=== PATIENT | female | born 1985 | race Caucasian/White ===

== ENCOUNTER 2019-03-09 15:03 | Emergency (ER) | payer SELFPAY ==
[2019-03-09 15:42] LABS: Urine Appearance Cloudy; Urine Bacteria 2+ (Absent); Urine Bilirubin Negative (Negative); Urine Blood 3+ (Negative); Urine Color Yellow; Urine Glucose Negative (Negative); Urine Ketones Negative (Negative); Urine Nitrite Negative (Negative); Urine Protein Negative (Negative); Urine Red Blood Cell 3+(>10/hpf) (Absent); Urine Specific Gravity 1.023 (1.010-1.030); Urine Squamous Epithelial Cell Present (Absent); Urine Urobilinogen Negative (Negative); Urine White Blood Cell 2+(11-20/hpf) (Absent)
[2019-03-09 16:09] LABS: ABS Basophils 0.1 10^3/ul (0-0.2); ABS Eosinophils 0.1 10^3/ul (0-0.6); ABS Lymphocytes 2.3 10^3/ul (1.0-4.8); ABS Monocytes 0.9 10^3/ul (0-0.8); ABS Neutrophils 11.8 10^3/ul (1.5-7.7); Eosinophil % 0.8 %; Hematocrit 41 % (35-47); Hemoglobin 13.4 g/dL (12.0-16.0); Lymphocyte % 15.3 %; Mean Corpuscular HGB Conc 33 g/dL (31-36); Mean Corpuscular Hemoglobin 27 pg (27-31); Mean Corpuscular Volume 82 fL (80-97); Mean Platelet Volume 8.9 fL (7.4-10.4); Platelet Count 258 10^3/uL (150-450); Red Blood Count 4.97 10^6 /uL (3.70-4.87); Red Cell Distribution Width 14 % (10-15); White Blood Count 15.2 10^3/uL (3.5-10.8)
[2019-03-09 16:29] LABS: Albumin 4.7 g/dL (3.2-5.2); Albumin/Globulin Ratio 1.5 (1-3); BUN/Creatinine Ratio 24.3 (8-20); Calcium 9.5 mg/dL (8.6-10.3); EGFR African American 115.9 (>60); EGFR Non-African American 95.8 (>60); Globulin 3.1 g/dL (2-4); Potassium 4.2 mmol/L (3.5-5.0); Total Bilirubin 0.4 mg/dL (0.2-1.0); Total Protein 7.8 g/dL (6.4-8.9)
[2019-03-09] MEDS ORDERED: Ondansetron INJ* 2 MG/ML VIAL IV ONE (17:42)
[2019-03-09] MEDS ORDERED: Ketorolac INJ* 30 MG/ML 1 ML VIAL IV PUSH ONE (17:42)
[2019-03-09] MEDS ORDERED: NS 0.9% 1000 ML** 1,000 ML IV ONE (17:42)
[2019-03-09] MEDS ORDERED: Ondansetron ODT TAB* 4 MG ONE (18:10)
[2019-03-09] MEDS ORDERED: Ondansetron ODT TAB* 4 MG PO ONE (18:13)
[2019-03-09] MEDS ORDERED: Sulfamethox/Trimethoprim DS 800/160* TAB PO ONE (19:34)
[2019-03-09] MEDS ORDERED: Tamsulosin CAP* 0.4 MG PO ONE (19:34)
--- NOTE | 2019-03-09 19:34 | ED ---
GI/ HPI - HPI Summary HPI Summary: 33-year-old female presents with flank pain for the past day. Has history kidney stones states it feels same. Denies any urinary symptoms. No fevers. Notes nausea but no vomiting. No abdominal pain. States she has not had a kidney stone since she was . She has no medical conditions. Hasn't taking anything for her symptoms. - History of Current Complaint Chief Complaint: EDFlankPain Time Seen by Provider: 03/09/19 17:30 Stated Complaint: BACK AND FLANK PAIN PER PT Pain Intensity: 7 - Allergy/Home Medications Allergies/Adverse Reactions: Allergies Allergy/AdvReac Type Severity Reaction Status Date / Time MS Clavulanic Acid Allergy Diarrhea Verified 03/09/19 17:44 [From Augmentin] MS Codeine [Codeine] Allergy Vomiting Verified 03/09/19 17:44 MS Hydrocodone [From Vicodin] Allergy Vomiting Verified 03/09/19 17:44 PMH/Surg Hx/FS Hx/Imm Hx Endocrine/Hematology History: Denies: Hx Anticoagulant Therapy Respiratory History: Reports: Hx Asthma History: Reports: Hx Kidney Stones - Surgical History Surgery Procedure, Year, and Place: TUBAL LIGATION - Immunization History Date of Tetanus Vaccine: unk Date of Influenza Vaccine: none Infectious Disease History: No Infectious Disease History: Denies: Traveled Outside the [place] in Last 30 Days - Family History Known Family History: Positive: Non-Contributory - Social History Alcohol Use: Occasionally Substance Use Type: Reports: None Smoking Status (MU): Never Smoked Tobacco Have You Smoked in the Last Year: No Review of Systems Negative: Fever Negative: Chest Pain Negative: Shortness Of Breath Positive: Nausea. Negative: Vomiting Positive: flank pain All Other Systems Reviewed And Are Negative: Yes Physical Exam Triage Information Reviewed: Yes Vital Signs On Initial Exam: Initial Vitals Temp Pulse Resp BP Pulse Ox 98.1 F 87 17 174/99 100 03/09/19 15:14 03/09/19 15:14 03/09/19 15:14 03/09/19 15:14 03/09/19 15:14 Vital Signs Reviewed: Yes Appearance: Positive: Well-Appearing Skin: Positive: Warm, Dry Head/Face: Positive: Normal Head/Face Inspection Eyes: Positive: Normal, Conjunctiva Clear ENT: Positive: Pharynx normal Respiratory/Lung Sounds: Positive: Clear to Auscultation, Breath Sounds Present Cardiovascular: Positive: Normal, RRR Abdomen Description: Positive: Soft, CVA Tenderness (L) Bowel Sounds: Positive: Present Musculoskeletal: Positive: Normal Neurological: Positive: Normal Psychiatric: Positive: Normal Diagnostics - Vital Signs Vital Signs Temp Pulse Resp BP Pulse Ox 03/09/19 15:14 98.1 F 87 17 174/99 100 - Laboratory Lab Results: Lab Results 03/09/19 03/09/19 03/09/19 Range/Units 15:20 15:55 15:55 WBC 15.2 H (3.5-10.8) 10^3/uL RBC 4.97 H (3.70-4.87) 10^6 /uL Hgb 13.4 (12.0-16.0) g/dL Hct 41 (35-47) % MCV 82 (80-97) fL MCH 27 (27-31) pg MCHC 33 (31-36) g/dL RDW 14 (10-15) % Plt Count 258 (150-450) 10^3/uL MPV 8.9 (7.4-10.4) fL Neut % (Auto) 77.5 % Lymph % (Auto) 15.3 % [place] % (Auto) 6.0 % Eos % (Auto) 0.8 % Baso % (Auto) 0.4 % Absolute Neuts (auto) 11.8 H (1.5-7.7) 10^3/ul Absolute Lymphs (auto) 2.3 (1.0-4.8) 10^3/ul Absolute Monos (auto) 0.9 H (0-0.8) 10^3/ul Absolute Eos (auto) 0.1 (0-0.6) 10^3/ul Absolute Basos (auto) 0.1 (0-0.2) 10^3/ul Absolute Nucleated RBC 0.0 10^3/ul Nucleated RBC % 0.0 Sodium 137 (135-145) mmol/L Potassium 4.2 (3.5-5.0) mmol/L Chloride 104 (101-111) mmol/L Carbon Dioxide 26 (22-32) mmol/L Anion Gap 7 (2-11) mmol/L BUN 17 (6-24) mg/dL Creatinine 0.70 (0.51-0.95) mg/dL Est GFR ( Amer) 115.9 (>60) Est GFR (Non-Af Amer) 95.8 (>60) BUN/Creatinine Ratio 24.3 H (8-20) Glucose 97 (70-100) mg/dL Calcium 9.5 (8.6-10.3) mg/dL Total Bilirubin 0.40 (0.2-1.0) mg/dL AST 17 (13-39) U/L ALT 24 (7-52) U/L Alkaline Phosphatase 74 (34-104) U/L Total Protein 7.8 (6.4-8.9) g/dL Albumin 4.7 (3.2-5.2) g/dL Globulin 3.1 (2-4) g/dL Albumin/Globulin Ratio 1.5 (1-3) Urine Color Yellow Urine Appearance Cloudy Urine pH 5.0 (5-9) Ur Specific [place] 1.023 (1.010-1.030) Urine Protein Negative (Negative) Urine Ketones Negative (Negative) Urine Blood 3+ A (Negative) Urine Nitrate Negative (Negative) Urine Bilirubin Negative (Negative) Urine Urobilinogen Negative (Negative) Ur Leukocyte Esterase 2+ A (Negative) Urine WBC (Auto) 2+(11-20/hpf) A (Absent) Urine RBC (Auto) 3+(>10/hpf) A (Absent) Ur Squamous Epith Cells Present A (Absent) Urine Bacteria 2+ A (Absent) Urine Glucose Negative (Negative) Result Diagrams: 03/09/19 15:55 03/09/19 15:55 Lab Statement: Any lab studies that have been ordered have been reviewed, and results considered in the medical decision making process. - CT abd CT Interpretation Completed By: Radiologist Summary of CT Findings: IMPRESSION: 1. There is cholelithiasis without pericholecystic inflammatory change. 2. There is a 6 mm calculus in the proximal left ureter mild left obstructive uropathy. There is additional nonobstructing left nephrolithiasis. GIGU Course/Dx - Course Course Of Treatment: 33-year-old female presents with flank pain for the past day. Has history kidney stones states it feels same. Denies any urinary symptoms. No fevers. Notes nausea but no vomiting. No abdominal pain. States she has not had a kidney stone since she was . She has no medical conditions. Hasn't taking anything for her symptoms. On exam tenderness left flank. White blood count 15. Urine shows potential UTI so we' ll treat Bactrim. CT shows 6 mm stone ureteral. will place patient on Flonase. Gave course of pain medication. We'll have follow-up with urology. Patient understands agrees with plan. - Diagnoses Differential Diagnoses - Female: Pyelonephritis, Urinary Tract Infection, Ureteral Calculi Provider Diagnoses: Ureteral stone, UTI (urinary tract infection) Discharge ED - Sign-Out/Discharge Documenting (check all that apply): Patient Departure Patient Received Moderate/Deep Sedation with Procedure: No - Discharge Plan Condition: Good Disposition: HOME Prescriptions: Ondansetron ODT TAB* [Zofran 4 MG Odt TAB*] 4 mg PO Q6H PRN #16 tab.odt PRN Reason: Nausea Sulfamethox/Trimethoprim DS* [Bactrim DS 800/160 TAB*] 1 tab PO BID #9 tab Tamsulosin CAP* [Flomax CAP*] 0.4 mg PO DAILY #6 cap traMADol TAB* [Ultram*] 50 mg PO Q6HR PRN #12 tab MDD 4 PRN Reason: Pain - Severe Patient Education Materials: Urinary Tract Infection in Women (ED), Ureteral Stones (ED) Referrals: Kin Bergman PA [Primary Care Provider] - Hemal Hernandez MD [Medical Doctor] - Additional Instructions: Take ibuprofen every 6 hours and tramadol as needed every 6-8 hours take bactrim twice a day for 5 days Take Zofran every 6 hours for nausea as needed Take Flomax daily starting tomorrow, first dose given in ED until stone expelled , make sure stand up slowly Follow up with urology, call office tomorrow for appointment Strain urine until collect stone Return to ED if unable to manage pain at home, develop fever, or any new or worsening symptoms - Billing Disposition and Condition Condition: GOOD Disposition: Home - Attestation Statements Provider Attestation: I was available for consult. This patient was seen by the [facility]. The patient was not presented to, seen by, or examined by me. Joseph Schneider MD
[2019-03-09 19:45] VITALS: BP 138/90
== END 2019-03-09 19:51 | disposition home or self-care (01) ==
LOC: ED 15:03
DX: N20.1 Calculus of ureter (principal); N39.0 Urinary tract infection, site not specified; K80.20 Calculus of gallbladder without cholecystitis without obstruction; J45.909 Unspecified asthma, uncomplicated; Z98.51 Tubal ligation status; Z88.1 Allergy status to other antibiotic agents; Z88.5 Allergy status to narcotic agent; Z79.899 Other long term (current) drug therapy
CPT/HCPCS: 36415; 74176; 80053; 81003; 81015; 85025; 87086; 96374; 96375; 99283; A9270-GY; J1885

== ENCOUNTER 2020-09-05 10:04 | Inpatient (IN) ==
[~2020-09-05 10:04] MED LIST: Buffered Lidocaine 1% SYRIN 1 ml INTRADERM ONE; Lactated Ringers 1000 ml BAG 1,000 ML IV SCH; Lidocaine 2% PF 5 ML VIAL ONE; Midazolam 2 mg/2 ml VIAL 1 mg/ml 2 ml VIAL (2 mg) ONE; Rocuronium 50 mg VIAL 10 mg/ml 5 ml VIAL (50 mg) ONE; fentaNYL 100 mcg/2 ml 50 MCG/ML VIAL ONE
[2020-09-05] MEDS ORDERED: ceFAZolin 1 GM ADVAN 1 GM ADDV.VIAL IVPB ONE (10:17)
[2020-09-05] MEDS ORDERED: Heparin 5000 UNITS/ML 1 mL VIAL ONE (10:17)
[2020-09-05] MEDS ORDERED: Methylene Blue 0.5 % 50 MG/10 ML AMP IV ONE (10:26)
[2020-09-05] MEDS ORDERED: Bupivacaine 0.25% EPI 200,000 30 ML SDV ONE (10:27)
[2020-09-05] MEDS ORDERED: HYDROmorphone 1 MG/1 ML SYRINGE ONE ×2 (11:25→15:40)
[2020-09-05] MEDS ORDERED: Dexamethasone IV 4 MG/ML VIAL 1 ml VIAL ONE (11:32)
[2020-09-05] MEDS ORDERED: Phenylephrine 40 mcg/mL 10mL (400mcg) SYRINGE ONE (11:34)
[2020-09-05] MEDS ORDERED: diPHENhydraMINE IV 50 MG/ML 1 ml VIAL (BENADRYL) IV PRN (11:46)
[2020-09-05] MEDS ORDERED: Naloxone 0.4 mg VIAL 0.4 mg/ml 1 ml VIAL IV PRN (11:46)
[2020-09-05] MEDS ORDERED: Acetaminophen IV 1 GM/100ML 100 ML ONE (11:47)
[2020-09-05] MEDS ORDERED: fentaNYL 100 mcg/2 ml 50 MCG/ML VIAL ONE ×2 (13:46→15:40)
[2020-09-05] MEDS ORDERED: diPHENhydraMINE IV 50 MG/ML 1 ml VIAL (BENADRYL) ONE ×2 (14:01→15:27)
[2020-09-05] MEDS ORDERED: Propofol 10 MG/ML 20 ML BTL ONE (14:03)
[2020-09-05] MEDS ORDERED: Ondansetron 4 mg VIAL 2 MG/ML 2 ml VIAL IV PRN (14:16)
[2020-09-05] MEDS ORDERED: HYDROmorphone 0.5 MG/0.5 ML SYRINGE IV SLOW PU PRN (14:16)
[2020-09-05] MEDS ORDERED: Ondansetron 4 mg VIAL 2 MG/ML 2 ml VIAL ONE (15:27)
[2020-09-05] MEDS: fentaNYL 100 mcg/2 ml 50 MCG/ML VIAL IV PRN ×2 (15:43→15:52)
[2020-09-05] MEDS ORDERED: Prochlorperazine 5 mg/ml 2 ml VIAL (10 mg) IV PRN (16:46)
[2020-09-05] MEDS: Lactated Ringers 1000 ml BAG 1,000 ML IV SCH ×2 (17:41→23:10)
[2020-09-05] MEDS ORDERED: Metoprolol Tartrate 5 mg VIAL 5 ml VIAL (1 mg/ml) IV ONE (23:00)
[2020-09-06] MEDS: Heparin 5000 UNITS/ML 1 mL VIAL SUBCUT SCH ×2 (05:52→13:58)
[2020-09-06] MEDS: Lactated Ringers 1000 ml BAG 1,000 ML IV SCH (05:56)
[2020-09-06 08:26] LABS: Hematocrit 36 % (35-47); Hemoglobin 12.1 g/dL (12.0-16.0)
[2020-09-06 13:45] VITALS: BP 158/72
[2020-09-06] MEDS ORDERED: D5W 1/2 NS KCl 20 meq 1000 ml 1,000 ML IV SCH (15:00)
[2020-09-08] MEDS ORDERED: Scopolamine PATCH Remove NOTE PATCH OFF SCH (17:00)
== END 2020-09-06 17:50 | disposition home or self-care (01) | DRG 403 ==
LOC: AA 10:04 → SSU 16:22
PROVIDERS: ADMIT Surgery; ATTEND Surgery